=== PATIENT | female | born 1965 ===

== ENCOUNTER 2018-06-09 09:35 | Observation (INO) | payer OTHER ==
[2018-06-09 09:54] VITALS: BMI 26.6
[2018-06-09] MEDS ORDERED: Lactated Ringer's 1,000 ML IV ONE ×2 (10:21→13:20)
[2018-06-09] MEDS ORDERED: Iodixanol 320 MG/ML 100 ML BOTTLE IV ONE (12:15)
[2018-06-09] MEDS ORDERED: Iodixanol 320 mg/ml 50 ml Sol IV ONE (12:16)
[2018-06-09] MEDS ORDERED: Midazolam 2 MG/2 ML VIAL ONE (12:29)
[2018-06-09] MEDS ORDERED: Ketamine 50 mg/ml Inj (10 ml) ONE (12:31)
[2018-06-09] MEDS ORDERED: Propofol 10 mg/ml Inj (20 ML) ONE (12:31)
[2018-06-09] MEDS ORDERED: Lidocaine Hydrochloride 1% 10 ML ONE (12:37)
--- NOTE | 2018-06-09 13:17 | CP.SDSHP ---
Same Day Surgery H & P - History Proposed Procedure: uterine artery embolization Pre-Op Diagnosis: uterine fibroids - Allergies Allergies: Allergies morphine Allergy (Severe, Verified 03/04/18 11:15) VOMITING PT. ALSO REPORTS BP DROPS - Physical Exam Vital Signs: Vital Signs 06/09/18 06/09/18 10:12 11:02 Temperature 98.2 F 98.2 F Pulse Rate 64 64 Respiratory 20 20 Rate Blood Pressure 139/83 O2 Sat by Pulse 97 97 Oximetry Mental Status: Alert & Oriented x3 Neuro: WNL Heart: WNL Lungs: WNL GI: WNL - Impression Impression: Pt with symptomatic uterine fibroids complicated by anemia. Plan uterine artery embolization. Informed consent obtained. Pt. Evaluated Today:Candidate for Anesthesia & Procedure: Yes (ASA 3 Malampati 2) - Date & Time Date: 06/09/18 Time: 12:00 Short Stay Discharge - Short Stay Discharge Admitting Diagnosis/Reason for Visit: FIBROID UTERUS Disposition: HOME/ ROUTINE
--- NOTE | 2018-06-09 13:20 | PCM.SURG1 ---
Surgeon's Initial Post Op Note - Surgeon's Notes Surgeon: Zac Rossi MD Civil Service Clerk: NONE Type of Anesthesia: IV Sedation, Local Pre-Operative Diagnosis: Uterine fibroids, anemia Operative Findings: Tortuous bilateral uterine arteries Post-Operative Diagnosis: Uterine fibroids, anemia Operation Performed: bilateral uterine artery embolization Specimen/Specimens Removed: none Estimated Blood Loss: EBL {In ML}: 10 Blood Products Given: N/A Drains Used: No Drains Post-Op Condition: Good Date of Surgery/Procedure: 06/09/18 Time of Surgery/Procedure: 13:15
--- NOTE | 2018-06-09 13:26 | CP.PCM.HP ---
<Grace Moctezuma - Last Filed: 06/09/18 14:11> History of Present Illness - History of Present Illness History of Present Illness: 52-year-old female history of sleeve gastrectomy (2014), Iron deficiency anemia secondary to menorrhagia, and large submucosal uterine fibroid found on MRI is now s/p bilateral uterine artery embolization (06/09/18). She has a history of regular menses with menorrhagia. Denies chest pain, shortness of breath, dizziness, nausea, vomiting, abdominal pain. LMP:05/19/18 PMD: Dr. Simpson Past medical history: Morbid obesity, rheumatoid arthritis Surgery history: Sleeve surgery multiple laparoscopic surgeries in the past Hospitalization: 12/2017 recieved 2 units of pRBC for low H/H (7) Medications: Denies Family history of Father with HTN. Allergies: Morphine- vomiting Social: Social alcohol, denies drugs, denies smoking ROS: negative except for stated above in HPI. Pt seen post-op: resting comfortably. Reports soreness in lower abdomen after surgery, 08/03. Denies nausea, chest pain or shortness of breath at this time. Present on Admission - Present on Admission Any Indicators Present on Admission: No History of DVT/PE: No History of Uncontrolled Diabetes: No Past Patient History - Infectious Disease Hx of Infectious Diseases: None - Past Medical History & Family History Past Medical History?: Yes - Past Social History Smoking Status: Never Smoked - CARDIAC Hx Cardiac Disorders: No - PULMONARY Hx Respiratory Disorders: Yes Hx Asthma: Yes (LAST ATTACK YEARS AGO) - NEUROLOGICAL Hx Neurological Disorder: No - HEENT Hx HEENT Problems: No - RENAL Hx Chronic Kidney Disease: No - ENDOCRINE/METABOLIC Hx Endocrine Disorders: No - HEMATOLOGICAL/ONCOLOGICAL Hx Blood Disorders: No - INTEGUMENTARY Hx Dermatological Problems: No - MUSCULOSKELETAL/RHEUMATOLOGICAL Hx Musculoskeletal Disorders: No - GASTROINTESTINAL Hx Gastrointestinal Disorders: No - GENITOURINARY/GYNECOLOGICAL Hx Genitourinary Disorders: No - PSYCHIATRIC Hx Psychophysiologic Disorder: No Hx Emotional Abuse: No Hx Physical Abuse: No - SURGICAL HISTORY Hx Surgeries: Yes Hx Section: Yes Hx Gastric Bypass Surgery: Yes (2014) Other/Comment: LAPAROSCOPIEC OVARIAN CYSTECTOMY - ANESTHESIA Hx Anesthesia: Yes Hx Anesthesia Reactions: No Hx Malignant Hyperthermia: No Has any member of the family had a problem w/ anesthesia?: No Meds Allergies/Adverse Reactions: Allergies Allergy/AdvReac Type Severity Reaction Status Date / Time morphine Allergy Severe VOMITING Verified 03/04/18 11:15 Physical Exam - Constitutional Appears: Well, Non-toxic, No Acute Distress - ENT Exam ENT Exam: Mucous Membranes Moist - Respiratory Exam Respiratory Exam: Clear to Auscultation Bilateral, NORMAL BREATHING PATTERN. absent: Accessory Muscle Use, Chest Wall Tenderness, Decreased Breath Sounds, Prolonged Expiratory Phase, Rales, Rhonchi, Wheezes, Respiratory Distress, Stridor - Cardiovascular Exam Cardiovascular Exam: REGULAR RHYTHM, RRR, +S1, +S2 - GI/Abdominal Exam GI & Abdominal Exam: Normal Bowel Sounds - Extremities Exam Extremities exam: Positive for: normal capillary refill, normal inspection. Negative for: calf tenderness, pedal edema, tenderness - Neurological Exam Neurological exam: Alert, Oriented x3 - Psychiatric Exam Psychiatric exam: Normal Affect, Normal Mood - Skin Skin Exam: Dry, Intact, Normal Color, Warm Results - Vital Signs Recent Vital Signs: Last Vital Signs Temp 98.2 F 06/09/18 11:02 Pulse 64 06/09/18 11:02 Resp 20 06/09/18 11:02 BP 139/83 06/09/18 10:12 Pulse Ox 97 06/09/18 11:02 Assessment & Plan (1) Uterine fibroid Status: Acute - Assessment and Plan (Free Text) Assessment: 52 yo female with history of large fundal submucosal uterine fibroid s/p bilateral uterine artery embolization 06/09/[address] Agrawal. POD # 0 admitted for pain management. Plan: 1. Large fundal submucosal Uterine fibroid s/p bilateral uterine artery embolization - Admit to MED/SURG for obs - Pain management- Dilaudid and acetaminophen - IR recommendations appreciated - IVF: LR @ 100mL/hr - F/U CBC and BMP - Incentive spirometry - regular diet 2. DVT prophylaxis - SCD's - Lovenox 3. Full code status Decision To Admit - Pt Status Changed To: Hospital Disposition Of: Observation - . Bed Request Type: Med/Surg Admitting Physician: Lisa Mcgraw <Lisa Mcgraw - Last Filed: 06/09/18 14:31> Results - Vital Signs Recent Vital Signs: Last Vital Signs Temp 98.0 F 06/09/18 14:20 Pulse 65 06/09/18 14:20 Resp 18 04/16/19 14:20 BP 132/79 06/09/18 14:05 Pulse Ox 99 06/09/18 14:20 Attending/Attestation - Attestation I have personally seen and examined this patient.: Yes I have fully participated in the care of the patient.: Yes I have reviewed all pertinent clinical information: Yes Notes (Text): Uterine Fibroid with Menorrhagia and Chronic Anemia s/p Uterine Artery Embolization -will observe pt in the hospital overnight , Pain mgt with IV Dilaudid for severe pain, Percocet for mod pain and Tylenol for mild pain -
[2018-06-09] MEDS ORDERED: Sodium Chloride 0.9% 1,000 ML IV SCH (13:30)
[2018-06-09] MEDS: HYDROmorphone 0.5 mg/0.5 ml ISec IVP PRN ×4 (14:05→15:15)
[2018-06-09] MEDS ORDERED: HYDROmorphone 0.5 mg/0.5 ml ISec IVP PRN ×2 (14:23→16:10)
[2018-06-09] MEDS ORDERED: Oxycodone/Acetaminophen 5/325 mg Tab PO PRN (14:24)
[2018-06-09] MEDS ORDERED: HYDROmorphone 0.5 mg/0.5 ml ISec ONE (16:14)
[2018-06-09 17:31] VITALS: RESP 20
[2018-06-09] MEDS: Lactated Ringer's 1,000 ML IV SCH (18:43)
[2018-06-10] MEDS: Lactated Ringer's 1,000 ML IV SCH (06:23)
[2018-06-10 06:52] LABS: HEMOGLOBIN 13.6 g/dL (12.0-16.0); MEAN CELL VOLUME 92.1 fl (81.0-99.0); MEAN CORPUSCULAR HEMOGLOBIN 30.9 pg (27.0-31.0); MEAN CORPUSCULAR HGB CONC 33.5 g/dL (33.0-37.0); RBC 4.41 Mil/uL (3.80-5.20); RED CELL DISTRIBUTION WIDTH 14.7 % (11.5-14.5); WHITE BLOOD COUNT 11.8 K/uL (4.8-10.8)
[2018-06-10 07:05] LABS: BLOOD UREA NITROGEN 9 mg/dl (7-17); CALCIUM 9.1 mg/dL (8.4-10.2); GFR NON-AFRICAN AMERICAN > 60
--- NOTE | 2018-06-10 08:41 | CP.PCM.DIS ---
<Grace Moctezuma - Last Filed: 06/10/18 11:41> Provider - Provider Date of Admission: 06/09/18 13:27 Attending physician: Lisa Mcgraw MD Consults: Dr. Agrawal Time Spent in preparation of Discharge (in minutes): 30 Diagnosis - Discharge Diagnosis (1) Uterine fibroid Status: Acute Hospital Course - Lab Results Lab Results: Most Recent Lab Values WBC 11.8 K/uL (4.8-10.8) H 06/10/18 05:25 RBC 4.41 Mil/uL (3.80-5.20) 06/10/18 05:25 Hgb 13.6 g/dL (12.0-16.0) 06/10/18 05:25 Hct 40.6 % (34.0-47.0) 06/10/18 05:25 MCV 92.1 fl (81.0-99.0) 06/10/18 05:25 MCH 30.9 pg (27.0-31.0) 06/10/18 05:25 MCHC 33.5 g/dL (33.0-37.0) 06/10/18 05:25 RDW 14.7 % (11.5-14.5) H 06/10/18 05:25 Plt Count 317 K/uL (130-400) 06/10/18 05:25 Sodium 135 mmol/l (132-148) 06/10/18 05:25 Potassium 3.7 MMOL/L (3.6-5.0) 06/10/18 05:25 Chloride 104 mmol/L (98-107) 06/10/18 05:25 Carbon Dioxide 23 mmol/L (22-30) 06/10/18 05:25 Anion Gap 12 (10-20) 06/10/18 05:25 BUN 9 mg/dl (7-17) 06/10/18 05:25 Creatinine 0.6 mg/dl (0.7-1.2) L 06/10/18 05:25 Est GFR ( Amer) > 60 06/10/18 05:25 Est GFR (Non-Af Amer) > 60 06/10/18 05:25 Random Glucose 97 mg/dL (65-105) 06/10/18 05:25 Calcium 9.1 mg/dL (8.4-10.2) 06/10/18 05:25 - Hospital Course Hospital Course: 52-year-old female history of sleeve gastrectomy (2014), Iron deficiency anemia secondary to menorrhagia, was admitted for large submucosal uterine fibroid. Patient is POD 1 s/p bilateral uterine artery embolization (06/09/18). Post-op she tolerated a regular diet and voided. Pain was well managed and has not had pain for over 16 hours. Hemodynamically stable. Patient will follow up with Dr. Agrawal. Discharge Exam - Eye Exam Eye Exam: Normal appearance - ENT Exam ENT Exam: Mucous Membranes Moist - Neck Exam Neck exam: Normal Inspection - Respiratory Exam Respiratory Exam: Clear to PA & Lateral, NORMAL BREATHING PATTERN. absent: Accessory Muscle Use, Chest Wall Tenderness, Decreased Breath Sounds, Prolonged Expiratory Phase, Rales, Rhonchi, Wheezes, Respiratory Distress, Stridor - Cardiovascular Exam Cardiovascular Exam: REGULAR RHYTHM, RRR, +S1, +S2. absent: Diastolic murmur, JVD, Systolic Murmur - GI/Abdominal Exam GI & Abdominal Exam: Normal Bowel Sounds, Soft, Unremarkable. absent: Distended, Firm, Mass, Pulsatile Mass, Rebound, Rigid, Tenderness - Extremities Exam Extremities exam: normal capillary refill, normal inspection - Neurological Exam Neurological exam: Alert, Normal Gait, Oriented x3 - Psychiatric Exam Psychiatric exam: Normal Affect, Normal Mood - Skin Skin Exam: Dry, Intact, Normal Color, Warm Discharge Plan - Follow Up Plan Condition: GOOD Disposition: HOME/ ROUTINE Patient education suggested?: Yes Instructions: Uterus Artery Embolization, Docusate, Doxycycline, Oxycodone and Acetaminophen Additional Instructions: Follow up with Dr. Agrawal and PMD May remove dressing and shower do not sit for long periods of time, Take medications as prescribed by do not drive while taking percocet Seek medical attention if symptoms worsen for for any other concerns <Lisa Mcgraw - Last Filed: 06/10/18 17:44> Provider - Provider Date of Admission: 06/09/18 13:27 Attending physician: Lisa Mcgraw MD Hospital Course - Lab Results Lab Results: Most Recent Lab Values WBC 11.8 K/uL (4.8-10.8) H 06/10/18 05:25 RBC 4.41 Mil/uL (3.80-5.20) 06/10/18 05:25 Hgb 13.6 g/dL (12.0-16.0) 06/10/18 05:25 Hct 40.6 % (34.0-47.0) 06/10/18 05:25 MCV 92.1 fl (81.0-99.0) 06/10/18 05:25 MCH 30.9 pg (27.0-31.0) 06/10/18 05:25 MCHC 33.5 g/dL (33.0-37.0) 06/10/18 05:25 RDW 14.7 % (11.5-14.5) H 06/10/18 05:25 Plt Count 317 K/uL (130-400) 06/10/18 05:25 Sodium 135 mmol/l (132-148) 06/10/18 05:25 Potassium 3.7 MMOL/L (3.6-5.0) 06/10/18 05:25 Chloride 104 mmol/L (98-107) 06/10/18 05:25 Carbon Dioxide 23 mmol/L (22-30) 06/10/18 05:25 Anion Gap 12 (10-20) 06/10/18 05:25 BUN 9 mg/dl (7-17) 06/10/18 05:25 Creatinine 0.6 mg/dl (0.7-1.2) L 06/10/18 05:25 Est GFR ( Amer) > 60 06/10/18 05:25 Est GFR (Non-Af Amer) > 60 06/10/18 05:25 Random Glucose 97 mg/dL (65-105) 06/10/18 05:25 Calcium 9.1 mg/dL (8.4-10.2) 06/10/18 05:25 Attending/Attestation - Attestation I have personally seen and examined this patient.: Yes I have fully participated in the care of the patient.: Yes I have reviewed all pertinent clinical information, including history, physical exam and plan: Yes Notes (Text): Uterine Fibroid with Menorrhagia and Chronic Anemia s/p Uterine Artery Embolization -pt was observed in the hospital overnight -Pain controlled - will d/c home on PO Doxy and Percocet, stool softener - ff up with Dr Rossi and PMD in 1 wk
[2018-06-10] MEDS ORDERED: Enoxaparin 40 mg Syringe SC SCH (09:00)
[2018-06-10 12:47] VITALS: BP 131/72; PULSE 75; TEMP 99.2; O2SAT 98
--- NOTE | 2018-06-10 14:08 | VASCULAR ---
PROCEDURE: Date of procedure: 06/09/2018 Procedure: 1. Bilateral uterine artery embolization 2. Selective catheterization of left uterine artery (3rd order catheterization) 3. Selective catheterization of the right uterine artery (3rd order catheterization) Contrast: 75 cubic centimeters Visipaque 320 Medications: Patient sedated by anesthesiologist with MAC anesthesia, 8 cubic centimeters 1 percent lidocaine. Fluoroscopy time: 327 seconds Radiation: 209.82 mGy HISTORY: Uterine leiomyomas, dysfunctional bleeding, anemia TECHNIQUE: Following informed consent the procedure time-out, patient placed supine on the interventional table. Her right groin was prepped and draped in the usual sterile fashion. Following informed consent, the right common femoral artery was accessed with micropuncture technique and a guidewire was advanced under fluoroscopic guidance into the abdominal aorta. Through a 5 Nigerian vascular sheath, a 5 Nigerian cobra glide catheter was advanced over the wire and used to select the left internal iliac artery. A pelvic angiogram was performed in the NIGERIEN projection. The pelvic angiogram showed a very tortuous and dilated left uterine artery arising from the anterior division of the left internal iliac artery. The left uterine artery was then catheterized with a Progreat microcatheter. A selective left uterine artery angiogram was performed. Left uterine artery angiogram showed a hypervascular fibroid uterus. With a Cobra catheter position within the left urine arteries, the artery was embolized with a embospheres micro spheres measuring 500-700 microns until near stasis of blood was achieved both before and after 5-minutes waiting period. Post embolization angiogram showed the delayed filling of the left uterine artery. The cobra glide catheter was then positioned within the ipsilateral right internal iliac artery and a pelvic angiogram was performed in the STEPHEN projection. Pelvic angiogram showed a dilated right uterine artery arising from the anterior division of the right internal iliac artery. Right uterine artery was catheterized with a Progreat microcatheter. A selective right uterine artery angiogram was performed. Right uterine artery angiogram showed a hypervascular fibroid uterus. With a Cobra catheter position within the right uterine artery, the right uterine artery was embolized with embospheres microspheres measuring 500-700 microns in diameter on still near stasis multiples achieve both before and after 5-minute waiting period. Post embolization angiogram showed delayed filling of the right uterine artery. IMPRESSION: 1. Tortuous and dilated right and left renal artery which were successfully embolized with embospheres microspheres measuring 500-700 microns. 2. The patient be admitted for observation and pain control. 3. The patient will be discharged with intervention Radiology followup for assessment of volume reduction and fiber infarction following embolization.
== END 2018-06-10 13:40 | disposition home or self-care (01) ==
LOC: H.OPSURG 09:35 → H.PEDS 13:27
PROVIDERS: ADMIT Internal Medicine; ATTEND Internal Medicine
DX: D25.0 Submucous leiomyoma of uterus (principal); D50.0 Iron deficiency anemia secondary to blood loss (chronic); N92.0 Excessive and frequent menstruation with regular cycle; E66.01 Morbid (severe) obesity due to excess calories; M06.9 Rheumatoid arthritis, unspecified; Z98.84 Bariatric surgery status; Z68.26 Body mass index [BMI] 26.0-26.9, adult; Z88.6 Allergy status to analgesic agent
CPT/HCPCS: 36415; 37243; 80048; 85027; C1769; G0378; J0690; J1100; J1170; J1650; J1885; J2001; J2250; J2405; J2704; J2765; J3010; J7120; Q9967